=== PATIENT | female | born 1995 | race Two or more races ===

== ENCOUNTER 2023-11-24 14:19 | Emergency (ER) | payer OTHER ==
[~2023-11-24] VITALS: Ht 165.1 cm; Wt 56.2 kg
[2023-11-24] MEDS ORDERED: PRENATAL + DHA1 EAC1 PO (14:36)
[2023-11-24 16:22] LABS: HEMATOCRIT 38.5 % (36.0-45.00); HEMOGLOBIN 12.8 g/dL (12.0-15.00); MEAN CELL VOLUME 95.8 fL (80.00-100.00); MEAN CORPUSCULAR HGB CONC 33.4 g/dl (32.0-36.0); PLATELET COUNT 351 K/uL (150-450); RED BLOOD COUNT 4.02 M/uL (4.00-6.00); RED CELL DISTRIBUTION WIDTH 12.9 % (11.5-14.5)
[2023-11-24 16:55] LABS: CALCIUM 9.8 mg/dL (8.5-10.1); CREATININE SERUM 0.6 mg/dL (0.55-1.02); GFR 120.84; POTASSIUM 3.95 mEq/L (3.5-5.1)
[2023-11-24 17:17] LABS: PH,URINE 5.5 (5.0-8.0); URINE APPEARANCE Cloudy; URINE BILIRRUBIN Negative (NEGATIVE); URINE BLOOD Negative; URINE COLOR Yellow; URINE GLUCOSE Negative (NEGATIVE); URINE LEUKOCYTE Small; URINE NITRATE Negative; URINE PROTEIN Trace (NEGATIVE); URINE UROBILINOGEN 0.2 E.U./dl
[2023-11-24 17:18] LABS: URINE BACTERIA 6153.8 uL (0.0-1933); URINE EPITHELIAL CELLS 90.4 uL (0.0-38.8); URINE WBC 90.1 uL (0.0-23.2)
[2023-11-24] MEDS ORDERED: ONDANSETRON HCL4 MG PO (18:44)
[2023-11-24] MEDS ORDERED: PEPCID AC20 MG PO (18:44)
== END 2023-11-24 18:59 | disposition home or self-care (01) ==
LOC: ER 14:20
PROVIDERS: Nurse Practitioner Family
DX: O21.9 Vomiting of pregnancy, unspecified (principal); Z3A.01 Less than 8 weeks gestation of pregnancy; Z20.822 Contact with and (suspected) exposure to COVID-19; Z91.013 Allergy to seafood

== ENCOUNTER 2025-10-19 10:38 | Emergency (ER) | payer OTHER ==
[~2025-10-19] VITALS: Ht 162.6 cm; Wt 59.0 kg
[~2025-10-19 10:38] MED LIST: ONDANSETRON HCL4 MG PO; PEPCID AC20 MG PO; PRENATAL + DHA1 EAC1 PO
[2025-10-19] MEDS ORDERED: ONDANSETRON HCL 2 MG/ML VIAL IV STA (11:32)
[2025-10-19] MEDS ORDERED: FAMOTIDINE/PF 20 MG/2 ML VIAL IV STA (11:32)
[2025-10-19] MEDS ORDERED: 0.9 % SODIUM CHLORIDE 1,000 ML IV STA (11:32)
[2025-10-19] MEDS ORDERED: ONDANSETRON HCL 2 MG/ML VIAL ONE (12:31)
[2025-10-19] MEDS ORDERED: FAMOTIDINE/PF 20 MG/2 ML VIAL ONE (12:32)
[2025-10-19 13:49] LABS: INR 0.98
[2025-10-19 14:16] LABS: URINE APPEARANCE Clear; URINE BILIRRUBIN Negative (NEGATIVE); URINE BLOOD Negative; URINE COLOR Yellow; URINE GLUCOSE Negative (NEGATIVE); URINE KETONE Negative (NEGATIVE); URINE LEUKOCYTE Trace; URINE NITRATE Negative; URINE PROTEIN Negative (NEGATIVE); URINE UROBILINOGEN 0.2 E.U./dl
[2025-10-19 14:20] LABS: URINE EPITHELIAL CELLS 53.0 uL (0.0-38.8); URINE RBC 19.8 uL (0.0-20.8); URINE WBC 34.7 uL (0.0-23.2)
[2025-10-19 14:30] LABS: URINE CAST 0.28 uL (0.0-1.40)
[2025-10-19 14:33] LABS: BUN CREA RATIO 17.0 (7.0-25.0); CREATININE SERUM 0.48 mg/dL (0.55-1.02); GFR 154.0; GLUCOSE FASTING 119.0 mg/dL (65-100); OSMOLALITY SERUM 277.0 MOSM/KG (275-295)
[2025-10-19 15:49] LABS: BASO % 0.3 % (0.1-1.2); EOS # 0.21 (0.04-0.54); EOS % 1.5 % (0.7-7.0); LYMPH # 1.79 (1.18-3.74); LYMPH % 13.2 % (19.3-53.1); MEAN PLATELET VOLUME 9.00 fl (9.4-12.4); MONO # 1.06 (0.24-0.82); MONO % 7.8 % (4.7-12.5); NEUT # 10.48 (1.56-6.13); NEUT % 77.0 % (34.0-71.1); RED CELL DISTRIBUTION WIDTH 12.1 % (11.6-14.4)
[2025-10-19] MEDS ORDERED: ZOFRAN8 MG PO (16:02)
== END 2025-10-19 16:16 | disposition home or self-care (01) ==
LOC: ER 10:39
PROVIDERS: General Practice
DX: O21.0 Mild hyperemesis gravidarum (principal); Z3A.08 8 weeks gestation of pregnancy; Z91.013 Allergy to seafood